=== PATIENT | female | born 1965 | race Caucasian/White ===

== ENCOUNTER 2016-08-05 05:39 | Day surgery (SDC) | payer OTHER ==
[2016-07-30 16:57] LABS: A/G RATIO 1.1 (0.7-1.9); ALBUMIN 3.7 G/DL (3.5-5.0); ALKALINE PHOSPHATASE 84 U/L (45-117); CALCIUM, SERUM 9.1 MG/DL (8.5-10.4); CHLORIDE, SERUM 107 MMOL/L (96-112); CO2 (CARBON DIOXIDE) 28 MMOL/L (24-34); CREATININE 0.88 MG/DL (0.55-1.02); GFR AFRICAN AMERICAN 88 ML/MIN (>=60); GFR NON AFRICAN AMERICAN 76 ML/MIN (>=60); GLOBULIN 3.3 G/DL (2.5-4.1); POTASSIUM, SERUM 3.4 MMOL/L (3.5-5.3); SGOT(AST) 17 U/L (5-40); SGPT(ALT) 28 U/L (5-65); SODIUM, SERUM 140 MMOL/L (135-148); TOTAL BILIRUBIN 0.6 MG/DL (0-1.2)
[2016-07-30 16:59] LABS: BASOPHILS 0.3 %; BASOPHILS ABSOLUTE 0.03 10/3/uL (0.0-0.16); EOSINOPHILS 2.6 %; EOSINOPHILS ABSOLUTE 0.23 10/3/uL (0.0-0.53); HEMATOCRIT 38.4 % (36.0-48.0); IMMATURE GRANULOCYTES 0.3 %; IMMATURE GRANULOCYTES ABSOLUTE 0.03 10/3/uL (0.0-0.11); LYMPHOCYTES 28.5 %; MEAN CORPUS HGB CONC 33.9 g/dL (32.0-36.0); MEAN CORPUSCULAR HEMOGLOB 28.7 pg (26.0-34.0); MEAN PLATELET VOLUME 9.7 fL (9.2-13.0); MONOCYTES 4.6 %; NEUTROPHILS 63.7 %; NEUTROPHILS ABSOLUTE 5.57 10/3/uL (2.02-8.40); PLATELET COUNT 338 10/3/uL (150-400); RBC DISTRIBUTION WIDTH 13.9 % (12.0-16.0); RED CELL COUNT 4.53 10/6/uL (4.0-5.6); WHITE BLOOD CELLS 8.8 10/3/uL (4.5-10.5)
[2016-07-30 17:00] LABS: MANUAL DIFF NO %; MEAN CORPUSCULAR VOLUME 84.8 fL (80-100)
[2016-07-30 17:02] LABS: BUN (BLOOD UREA NITROGEN) 7 MG/DL (6-23); GLUCOSE, SERUM 116 MG/DL (60-99)
--- NOTE | ~2016-08-05 | PREOPHP ---
PreOp History and Physical [address] [place]. [address] NAME: VESTA JIMENEZ : 61 [place]US [place] [facility] [place] [id number] AGE: 50 ADM/REG DATE : 08/05/16 MR#: [id number] REPORT SERV DATE: 08/05/16 DICTATED BY: JOSE EDUARDO REYES III DATE: 07/31/16 REPORT STATUS : Draft TRANSCRIBED BY: MODEdith DATE: 07/31/16 HISTORY OF PRESENT ILLNESS: This 50-year-old female comes to the operating room for resection of two soft tissue masses over left anterior thigh. The patient complains of two hard nodules over her left anterior thigh. These have been increasing in size. They are symptomatic in terms of local pain and discomfort. The patient comes now for resection of both of these soft tissue masses of the left thigh. PAST MEDICAL HISTORY: 1. Hypertension. 2. Hypothyroidism. 3. Depression. 4. Gastroesophageal reflux disease. 5. Incomplete bundle-branch block, right. 6. Irritable bowel syndrome. MEDICATIONS: [place] Thyroid, bupropion, irbesartan, omeprazole. ALLERGIES: HYDROCHLOROTHIAZIDE AND LISINOPRIL. PAST SURGICAL HISTORY: Includes inguinal hernia repair, hysterectomy, and right ankle surgery. FAMILY HISTORY: Positive for diabetes and heart disease. SOCIAL HISTORY: The patient has a history of tobacco abuse. She has a history of alcohol use. REVIEW OF SYSTEMS: The patient complains of fatigue, weight gain, shortness of breath, and back pain. Her 14- point review of systems is otherwise unremarkable. PHYSICAL EXAMINATION: GENERAL: This is an obese female, in no acute distress. She is alert and oriented x3. VITAL SIGNS: Blood pressure 138/87, pulse 89, temperature 97.4. HEENT: Unremarkable. Cranial nerves 2 through 12 were normal. LUNGS: Clear. CARDIAC: Normal. NECK: Unremarkable. No adenopathy. EXTREMITIES: Her left anterior thigh is remarkable for two separate discrete nodules about 2-3 cm in diameter. These are fairly discrete, mobile, and nontender. The left and right groins were normal with no adenopathy. Extremities are otherwise unremarkable. ASSESSMENT: 1. 50-year-old female with enlarging symptomatic soft tissue masses of the left anterior thigh of unclear etiology. 2. Hypothyroidism. 3. Obesity. PreOp History and Physical [address] [place]. [address] NAME: VESTA JIMENEZ : 61 STATUS : REG [facility]#: [id number] AGE: 50 ADM/REG DATE : 08/05/16 MR#: [id number] REPORT SERV DATE: 08/05/16 DICTATED BY: JOSE EDUARDO REYES III DATE: 07/31/16 REPORT STATUS : Draft TRANSCRIBED BY: ELENA DATE: 07/31/16 4. Hypertension. 5. Depression. 6. Incomplete bundle-branch block. 7. Gastroesophageal reflux disease. PLAN: The patient has been offered resection of these masses versus observation. The pros and cons, advantages and disadvantages of each were discussed. The patient wishes to proceed with surgery, which will be resection of these two left anterior thigh masses. This procedure, the risks, benefits, and alternatives, including not limited to the risk for bleeding, infection, pain, swelling, scarring, deformity to each area, seroma formation, hematoma formation, nerve injury, chronic paresthesias, pain, numbness, neuralgia, or neuroma of the involved extremity, nerve injuries, muscle weakness, or paralysis to the involved extremity, wound failure, wound dehiscence, and unforeseen complications including deep venous thrombosis, pulmonary embolus, myocardial infarction, stroke, pneumonia, and , have been explained to the patient prior to surgery. The expected length of recovery has been explained to her. Her questions have been answered. She understands the risks and agrees to surgery as planned. DEO/ELENA Jose Eduardo Reyes III, M.D. / [id number]
--- NOTE | ~2016-08-05 | OP ---
Record Of Operation [facility] [address] [place]. [address] NAME: VESTA JIMENEZ : 61 STATUS : [facility]#: [id number] AGE: 50 ADM/REG DATE : 08/05/16 MR#: [id number] REPORT SERV DATE: 08/05/16 DICTATED BY: JOSE EDUARDO REYES III DATE: 08/05/16 REPORT STATUS : Draft TRANSCRIBED BY: MODEdith DATE: 08/05/16 DATE OF PROCEDURE: 08/05/2016 PREOPERATIVE DIAGNOSIS: Enlarging symptomatic soft tissue masses of the left thigh x2. POSTOPERATIVE DIAGNOSIS: Enlarging symptomatic soft tissue masses of the left thigh x2. PROCEDURE: Resection of two soft tissue masses from the left anterior thigh. SURGEON: Jose Eduardo Reyes M.D. ANESTHESIA: General with intubation. COMPLICATIONS: None. ESTIMATED BLOOD LOSS: Less than 5 mL. SPECIMENS: Mass from the left thigh x2. DRAINS: None. LAP AND SPONGE COUNT: Correct x3. BRIEF HISTORY: This 50-year-old female presented with two enlarging symptomatic soft tissue masses over the left thigh. It was felt that resection of these was indicated for both therapeutic and diagnostic reasons. This procedure, the risks, benefits, and alternatives, including but not limited to the risk for bleeding, infection, pain, swelling, scarring, deformity to the area, seroma formation, hematoma formation, nerve injury, chronic paresthesia, pain, numbness, neuralgia or neuroma, and unforeseen complications including deep venous thrombosis, pulmonary embolus, myocardial infarction, stroke, pneumonia, and were explained to the patient prior to the surgery. Her questions were answered. She understood the risks and agreed to the surgery as planned. DESCRIPTION OF PROCEDURE: After being properly identified and after discussing the risks and benefits of the surgery with her again in the preoperative area, and after identifying and marking each of the lesions carefully with a skin marker with her help in the preoperative area, the patient was taken to the operating room, and placed in the supine position on the operating room table. General anesthesia was administered, and she was intubated without difficulty. The left thigh was prepped and draped sterilely in the usual fashion. After an appropriate "time-out" per JCAHO standards, a small transverse incision was made directly over the most distal mass. The incision was continued through the subcutaneous tissue. Hemostasis was controlled with the cautery. A well-defined soft tissue mass was identified. This was completely resected. It was well-defined, well-encapsulated. It appeared to be consistent with a lipoma. At no point were any neurovascular structures encountered or injured. Hemostasis was assured. The subcutaneous tissue was closed with interrupted 3-0 Vicryl sutures. The skin was closed with running subcuticular 4-0 Monocryl stitch. Record Of Operation [facility] [id number] [facility] [place]. [address] NAME: VESTA JIMENEZ : 61 STATUS : [facility] PAT#: [id number] AGE: 50 ADM/REG DATE : 08/05/16 MR#: [id number] REPORT SERV DATE: 08/05/16 DICTATED BY: JOSE EDUARDO REYES III DATE: 08/05/16 REPORT STATUS : Draft TRANSCRIBED BY: ELENA DATE: 08/05/16 Similarly, we made a transverse incision over the most proximal lesion of the left anterior thigh. This was a similar subcutaneous mass about 0.5 cm in size. It was similarly completely resected. It was discrete and well-defined. The area was inspected both through and around the incision. No other suspicious masses or lesions were identified. Hemostasis was assured. The incision was closed in a similar fashion. The incisions were injected with 0.5% Marcaine. Dressings were applied. Anesthesia was reversed. The patient was taken to the recovery room in stable condition. She tolerated the procedure well. Her family was informed the results of the surgery. The patient will be discharged when stable and comfortable. Her family was advised that she should keep the wounds clean and dry for 48 hours, that she should not drive for two to three days after surgery or while using narcotics, and that she should resume her usual medications. She has been asked to return in two weeks for followup or sooner if any fever, chills, wound drainage, or other problems prior to that time. She was given a prescription for Percocet 7.5 one t.i.d., #12, as needed for pain, which she was advised not to use while driving. DEO/ELENA Jose Eduardo Reyes III, M.D. / [id number] CC: Nahomy Thompson III, M.D.
[~2016-08-05 05:39] MED LIST: ARMOUR THYRO60 MG PO; AVAP150 PO; BEN25 PO; MELATONIN5 M1 PO; PRILOSEC40 MG PO; PROZAC40 MG PO; WELLSR150 PO; [UNRECOGNIZED DRUG - OTHER] PO
== END 2016-08-05 09:28 | disposition home or self-care (01) ==
LOC: SDC 05:39
PROVIDERS: Surgery
PROC: 0JBM0ZZ Excision of Left Upper Leg Subcutaneous Tissue and Fascia, Open Approach (ICD-10-PCS; principal; 2016-08-05 06:45)
DX: R22.42 Localized swelling, mass and lump, left lower limb (principal); I10 Essential (primary) hypertension; E03.9 Hypothyroidism, unspecified; K58.9 Irritable bowel syndrome, unspecified; E66.01 Morbid (severe) obesity due to excess calories; K21.9 Gastro-esophageal reflux disease without esophagitis; F32.9 Major depressive disorder, single episode, unspecified; Z68.41 Body mass index [BMI] 40.0-44.9, adult; J45.909 Unspecified asthma, uncomplicated; Z90.710 Acquired absence of both cervix and uterus; Z98.42 Cataract extraction status, left eye; Z96.1 Presence of intraocular lens; Z98.890 Other specified postprocedural states; Z87.891 Personal history of nicotine dependence; Z79.899 Other long term (current) drug therapy
CPT/HCPCS: 71020; 80053; 85025; 88304; 93005; A9270-GY; J0690; J1170; J2250; J2405; J3010